=== PATIENT | male | born 1990 | race Caucasian/White ===

== ENCOUNTER 2025-04-15 22:42 | Inpatient (IN) | payer OTHER ==
[2025-04-15] MEDS ORDERED: NALOXONE 0.4 MG/ML 1 ML VIAL IV PRN (22:52)
--- NOTE | 2025-04-15 22:52 | ED ---
Recheck HPI - General Chief Complaint: Abdominal Pain Stated Complaint: Abd Pain Time Seen by Provider: 04/15/25 22:44 Source: patient, EMS, RN notes reviewed, old records reviewed Mode of arrival: EMS Limitations: no limitations - History of Present Illness Initial Comments: This is a 34-year-old male presenting with nausea vomiting and abdominal pain. Patient was seen at prior hospital transferred to our hospital for acute appendicitis MD Complaint: abnormal lab, needs IV antibiotics -: days(s) Returns Today for: needs IV antibiotics, persistent/worsening pain related to initial visit Symptoms Since Prior Visit: worsening pain Associated Symptoms: nausea, abdominal pain Treatments Prior to Arrival: Given Antibiotics on, Given Pain Meds on Review of Systems ROS Statement: Those systems with pertinent positive or pertinent negative responses have been documented in the HPI. ROS Other: All systems not noted in ROS Statement are negative. Past Medical History Past Medical History: GERD/Reflux History of Any Multi-Drug Resistant Organisms: None Reported Past Surgical History: No Surgical Hx Reported Past Psychological History: No Psychological Hx Reported Smoking Status: Never smoker Past Alcohol Use History: Occasional Past Drug Use History: Marijuana General Exam Limitations: no limitations General appearance: alert, in no apparent distress Head exam: Present: atraumatic, normocephalic, normal inspection Eye exam: Present: normal appearance, PERRL, EOMI. Absent: scleral icterus, conjunctival injection, periorbital swelling ENT exam: Present: normal exam, mucous membranes moist Neck exam: Present: normal inspection. Absent: tenderness, meningismus, lymphadenopathy Respiratory exam: Present: normal lung sounds bilaterally. Absent: respiratory distress, wheezes, rales, rhonchi, stridor Cardiovascular Exam: Present: regular rate, normal rhythm, normal heart sounds. Absent: systolic murmur, diastolic murmur, rubs, gallop, clicks GI/Abdominal exam: Present: soft, normal bowel sounds. Absent: distended, tenderness, guarding, rebound, rigid Extremities exam: Present: normal inspection, full ROM, normal capillary refill. Absent: tenderness, pedal edema, joint swelling, calf tenderness Back exam: Present: normal inspection Neurological exam: Present: alert, oriented X3, CN II-XII intact Psychiatric exam: Present: normal affect, normal mood Skin exam: Present: warm, dry, intact, normal color. Absent: rash Course Vital Signs 04/15/25 22:44 Temperature 98.6 F Pulse Rate 90 Respiratory 18 Rate Blood Pressure 146/98 O2 Sat by Pulse 99 Oximetry - Reevaluation(s) Reevaluation #1: 04/15/25 22:53 Sinus medical records reviewed Reevaluation #2: 04/15/25 22:54 Patient symptoms remain improved pain is controlled Reevaluation #3: 04/15/25 22:54 Patient informed of results and questions answered Reevaluation #4: Was pt. sent in by a medical professional or institution (PATTY Khan, MICROBIAL SPECIALIST, urgent care, hospital, or shelter...) When possible be specific @ -no Did you speak to anyone other than the patient for history (EMS, parent, family, police, friend...)? What history was obtained from this source @ -no Did you review nursing and triage notes (agree or disagree)? Why? @ -agree Are old charts reviewed (outside hosp., previous admission, EMS record, old EKG, old radiological studies, urgent care reports/EKG's, shelter records)? Report findings @ -yes Differential Diagnosis (chest pain, altered mental status, abdominal pain women, abdominal pain men, vaginal bleeding, weakness, fever, dyspnea, syncope, headache, dizziness, GI bleed, back pain, seizure, CVA, palpatations, mental health, musculoskeletal)? @ -prior EKG interpreted by me (3pts min.). @ -yes X-rays interpreted by me (1pt min.). @ -yes negative for acute disease CT interpreted by me (1pt min.). @ -no U/S interpreted by me (1pt. min.). @ -no What testing was considered but not performed or refused? (CT, X-rays, U/S, labs)? Why? @ -none What meds were considered but not given or refused? Why? @ -none Did you discuss the management of the patient with other professionals (professionals i.e. PATTY Khan, MICROBIAL SPECIALIST, lab, RT, psych nurse, social staff worker, freight car cleaner [employer], teacher, international first officer, casework specialist)? Give summary @ -no Was smoking cessation discussed for >3mins.? @ -no Was critical care preformed (if so, how long)? @ -no Were there social determinants of health that impacted care today? How? (Homelessness, low income, unemployed, alcoholism, drug addiction, transportation, low edu. Level, literacy, decrease access to med. care, [facility], rehab)? @ -none Was there de-escalation of care discussed even if they declined (Discuss DNR or withdrawal of care, Hospice)? DNR status @ -no What co-morbidities impacted this encounter? (DM, HTN, Smoking, COPD, CAD, Cancer, CVA, ARF, Chemo, Hep., AIDS, mental health diagnosis, sleep apnea, morbid obesity)? @ -none Was patient admitted / discharged? Hospital course, mention meds given and route, prescriptions, significant lab abnormalities, going to OR and other pertinent info. @ - Undiagnosed new problem with uncertain prognosis? @ -no Drug Therapy requiring intensive monitoring for toxicity (Heparin, Nitro, Insul in, Cardizem)? @ -no Were any procedures done? @ -no Diagnosis/symptom? @ - Acute, or Chronic, or Acute on Chronic? @ -Acute Uncomplicated (without systemic symptoms) or Complicated (systemic symptoms)? @ -Complicated Side effects of treatment? @ -no Exacerbation, Progression, or Severe Exacerbation? @ -exacerbation Poses a threat to life or bodily function? How? (Chest pain, [place], [place], pneumonia, PE, COPD, DKA, ARF, appy, cholecystitis, CVA, Diverticulitis, Homicidal, Suicidal, threat to staff... and all critical care pts) @ -yes Reevaluation #5: Differential Abdominal Pain Men: Appendicitis, cholecystitis, diverticulosis, ischemic bowel, pancreatitis, hepatitis, UTI, gastroenteritis, AAA, incarcerated hernia, bowel obstruction, constipation, inflammatory bowel, hepatitis, peptic ulcer disease, splenic infarction, perforated viscus, testicular torsion, this is not meant to be an all-inclusive list - Consultations Consultation #1: Spoke with Dr. Donaldson aware of this patient Medical Decision Making - Medical Decision Making 34 male accepted as transfer for acute appendicitis will be admitted for surgical evaluation and treatment Disposition Clinical Impression: Abdominal pain, Acute appendicitis Disposition: ADMITTED IP TO THIS [facility] Condition: Serious Is patient prescribed a controlled substance at d/c from ED?: No Referrals: Mal Ramirez MD [Primary Care Provider] - 1-2 days Time of Disposition: 23:00
[2025-04-15] MEDS: HYDROmorphone 1 MG/ML 1 ML SYRINGE IVP STA (23:01)
[2025-04-15] MEDS: AMPICILLIN-SULBACTAM 3 GM in SODIUM CHLORIDE 0.9% 100 ML IVPB STA (23:03)
[2025-04-15] MEDS: SODIUM CHLORIDE 0.9% 1,000 ML IV SCH (23:03)
[2025-04-15] MEDS: PANTOPRAZOLE 40 MG/10 ML VIAL IV SCH (23:06)
--- NOTE | 2025-04-16 00:31 | P.GSHP ---
History of Present Illness H&P Date: 04/16/25 This is a 34-year-old male presenting to the [facility] ER with nausea, vomiting, and abdominal pain. Patient was seen at outside hospital for the symptoms. A CT- AP was performed which showed acute appendicitis, Subsequently, the patient was transferred to [facility] for management and surgical intervention. Patient states pain is in the right lower quadrant. Currently, denies fevers and chills. Review of Systems ROS Statement: Those systems with pertinent positive or pertinent negative responses have been documented in the HPI. ROS Other: All systems not noted in ROS Statement are negative. Past Medical History Past Medical History: GERD/Reflux History of Any Multi-Drug Resistant Organisms: None Reported Past Surgical History: No Surgical Hx Reported Past Psychological History: No Psychological Hx Reported Smoking Status: Never smoker Past Alcohol Use History: Occasional Past Drug Use History: Marijuana General Exam Limitations: no limitations General appearance: alert, in no apparent distress Head exam: Present: atraumatic, normocephalic, normal inspection Eye exam: Present: normal appearance, PERRL, EOMI. Absent: scleral icterus, conjunctival injection, periorbital swelling ENT exam: Present: normal exam, mucous membranes moist Neck exam: Present: normal inspection. Absent: tenderness, meningismus, lymphadenopathy Respiratory exam: Present: normal lung sounds bilaterally. Absent: respiratory distress, wheezes, rales, rhonchi, stridor Cardiovascular Exam: Present: regular rate, normal rhythm, normal heart sounds. Absent: systolic murmur, diastolic murmur, rubs, gallop, clicks GI/Abdominal exam: Present: soft, normal bowel sounds. Absent: distended, tenderness, guarding, rebound, rigid Extremities exam: Present: normal inspection, full ROM, normal capillary refill. Absent: tenderness, pedal edema, joint swelling, calf tenderness Back exam: Present: normal inspection Neurological exam: Present: alert, oriented X3, CN II-XII intact Psychiatric exam: Present: normal affect, normal mood Skin exam: Present: warm, dry, intact, normal color. Absent: rash 34 year old male with Right Lower Quadrant Pain. CT-AP shows evidence for Acute Appendicitis. -Will plan for Laparoscopic Appendectomy today -NPO -IV fluids -Unasyn -Pain and Nausea Control -AM labs -Medicine consult for medical management [facility] [phone] Past Medical History Past Medical History: GERD/Reflux History of Any Multi-Drug Resistant Organisms: None Reported Past Surgical History: No Surgical Hx Reported Past Anesthesia/Blood Transfusion Reactions: No Reported Reaction Past Psychological History: No Psychological Hx Reported Smoking Status: Never smoker Past Alcohol Use History: Occasional Past Drug Use History: Marijuana Medications and Allergies Allergies Allergy/AdvReac Type Severity Reaction Status Date / Time No Known Allergies Allergy Verified 04/15/25 22:58 Surgical - Exam Vital Signs Temp Pulse Resp BP Pulse Ox 98.6 F 90 18 146/98 99 04/15/25 22:44 04/15/25 22:44 04/15/25 22:44 04/15/25 22:44 04/15/25 22:44
[2025-04-16] MEDS: MORPHINE SULFATE 4 MG/ML SYRINGE IV PRN (01:23)
[2025-04-16 04:46] LABS: Basophils # (A) 0.03 10*3/uL (0.00-0.10); Basophils % (A) 0.3 %; Eosinophils # (A) 0.11 10*3/uL (0.04-0.35); HCT 38.7 % (39.6-50.0); HGB 13.5 g/dL (13.0-17.0); Lymphocytes # (A) 1.66 10*3/uL (0.90-5.00); Lymphocytes % (A) 14.4 %; MCH 34.4 pg (27.0-32.0); MCHC 34.9 g/dL (32.0-37.0); MCV 98.5 fL (80.0-97.0); Mean Platelet Volume 9.3 fL (9.5-12.2); Monocytes % (A) 6.9 %; Neutrophils # (A) 8.87 10*3/uL (1.80-7.70); Neutrophils % (A) 76.8 %; Platelet Count 213 10*3/uL (140-440); RBC 3.93 10*6/uL (4.40-5.60); RDW 11.9 % (11.5-14.5); WBC 11.54 10*3/uL (4.50-10.00)
[2025-04-16 04:57] LABS: ALT 34 U/L (4-49); AST 20 U/L (17-59); African American GFR (CKD) >90 (>60 ml/min/1.73 sqM); Albumin 4.1 g/dL (3.5-5.0); Alkaline Phosphatase 73 U/L (38-126); Anion Gap 12 mmol/L; Blood Urea Nitrogen 12 mg/dL (9-20); Calcium 9.4 mg/dL (8.4-10.2); Carbon Dioxide 26 mmol/L (22-30); Chloride 99 mmol/L (98-107); Glucose 93 mg/dL (74-99); Non-African American GFR(CKD) >90 (>60 ml/min/1.73 sqM); Phosphorus 5.4 mg/dL (2.5-4.5); Sodium 137 mmol/L (137-145); Total Protein 6.4 g/dL (6.3-8.2)
[2025-04-16] MEDS: AMPICILLIN-SULBACTAM 3 GM in SODIUM CHLORIDE 0.9% 100 ML IVPB SCH (05:34)
[2025-04-16] MEDS ORDERED: ACETAMINOPHEN TAB 325 MG TAB PO PRN (09:12)
[2025-04-16] MEDS ORDERED: HYDROcodone/APAP 5-325MG 1 EACH TAB PO PRN (09:12)
--- NOTE | 2025-04-16 10:51 | P.CONS ---
History of Present Illness - Reason for Consult Consult date: 04/16/25 Medical Management Requesting physician: Adi Hood - Chief Complaint Abdominal pain, nausea, and vomiting - History of Present Illness History of Presenting Illness: Patient is a very pleasant 34-year-old male with a past medical history of GERD and marijuana use. He is currently admitted to our facility after being transferred from [facility] where he initially presented with abdominal pain, nausea, and vomiting and underwent workup with CT findings concerning for acute appendicitis. Patient was transferred to our facility and admitted under general surgery team. We were consulted for medical management throughout hospitalization. Labs completed and reviewed. CBC showing leukocytosis with WBC count of 11.54 low hematocrit of 38.7, elevated MCV of 98.5 and elevated MCH of 34.4. BMP was unremarkable. Calcium 9.4. Blood glucose 93. Magnesium 2.0. Liver profile unremarkable. Vital signs reviewed. Blood pressure 124/82, heart rate 88, re spiratory rate 16, temp 97.8 F, and SpO2 of 97% on room air. On examination, patient currently resting in bed with family at bedside. He reports continued moderate pain in right lower quadrant and mild pain in left lower quadrant. He denies any further episodes of nausea or vomiting since receiving antiemetic medication. Patient denies having any fevers, chills, diaphoresis, chest pain, palpitations, shortness of breath, or any other complaints at this time. Patient reports normal bowel and urinary function. Review of systems: Pertinent positives and negatives as discussed in HPI, a complete review of systems was performed and all other systems are negative. Physical exam: Vital signs reviewed and stable. General: Nontoxic, no distress and appears stated age. Derm: Skin warm and dry, normal coloration for ethnicity. Head: Atraumatic, normocephalic and symmetric. Eyes: EOM's intact, no lid lag, and anicteric sclera Mouth: no lip lesions, mucus membranes moist Cardiovascular: regular rate and rhythm with normal S1S2, no murmur, positive posterior tibial pulses bilaterally, and cap refill < 2 seconds. Lungs: Respirations even, regular, and unlabored on room air. Lungs CTA bilaterally, no rhonchi, no rales, no wheezing, and no accessory muscle usage. Abdominal: soft, tenderness upon palpation right lower quadrant and left lower quadrant, no guarding, no appreciable organomegaly Ext: ROM intact. No gross muscle atrophy, no edema, no contractures Neuro: Speech clear, face symmetrical and CN II-XII grossly intact with no noted focal neuro deficits Psych: Alert and oriented to person, place, time, and situation. Appropriate and pleasant affect. Assessment and Plan of Care: Acute appendicitis Patient admitted under the general surgery team with plans to take patient for laparoscopic appendectomy later today. Continue IV antibiotics with Unasyn 3 g every 6 hours. Zofran 4 mg IVP every 8 hours as needed for nausea or vomiting. Symptomatic care and pain management with Tylenol 650 mg every 6 hours as needed for mild pain and/for fever, [place] 5-325 mg tablets every 4 hours as needed for moderate pain, and morphine 4 mg IVP every 4 hours as needed for severe pain. N.p.o. pending completion of surgical procedure and diet to be advanced by primary admitting team. GI prophylaxis with Protonix 40 mg daily. Continue IV fluid hydration with 0.9% normal saline at 130 cc/h pending advancement of diet. May discontinue IV fluids once patient tolerating oral intake. GERD Continue Protonix 40 mg daily. Data and imaging reviewed: As stated above in HPI Thank you for allowing us to participate in the care of this pleasant patient. Do not hesitate to contact us with questions. Someone can be reached from the [facility] hospitalist group all hours of the day at [phone] or via Eve. Patient was seen independently by Nurse Practitioner. This document was prepared using Curi[employer] dictation software. Please allow for errors in sem manager while rare they do occur. Renaldo Love NP rendered care for this patient independently, reviewed the findings and plan as documented in the note above and agree with plan. I did not physically speak with or examine the patient on this date. Past Medical History Past Medical History: GERD/Reflux History of Any Multi-Drug Resistant Organisms: None Reported Past Surgical History: No Surgical Hx Reported Past Anesthesia/Blood Transfusion Reactions: No Reported Reaction Past Psychological History: No Psychological Hx Reported Smoking Status: Never smoker Past Alcohol Use History: Occasional Past Drug Use History: Marijuana Medications and Allergies Allergies Allergy/AdvReac Type Severity Reaction Status Date / Time No Known Allergies Allergy Verified 04/15/25 22:58 Physical Exam Vitals: Vital Signs Temp Pulse Pulse Resp BP BP Pulse Ox 04/16/25 08:00 97.8 F 88 16 124/82 97 04/16/25 01:46 97.3 F L 79 18 129/81 99 04/15/25 22:44 98.6 F 90 18 146/98 99 Intake and Output 04/15/25 04/16/25 04/16/25 22:59 06:59 14:59 Other: Weight 140.614 kg 140.614 kg Results CBC & Chem 7: 04/16/25 03:48 04/16/25 03:48 Labs: Abnormal Lab Results - Last 24 Hours (Table) 04/16/25 04/16/25 Range/Units 03:48 03:48 WBC 11.54 H (4.50-10.00) 10*3/uL RBC 3.93 L (4.40-5.60) 10*6/uL Hct 38.7 L (39.6-50.0) % MCV 98.5 H (80.0-97.0) fL MCH 34.4 H (27.0-32.0) pg MPV 9.3 L (9.5-12.2) fL Immature Gran # 0.07 H (0.00-0.04) 10*3/uL Neutrophils # 8.87 H (1.80-7.70) 10*3/uL Phosphorus 5.4 H (2.5-4.5) mg/dL
[2025-04-16 14:10] LABS: INR 0.93 sec (0.93-1.11); Prothrombin Time 10.7 sec (9.9-11.9)
[2025-04-16] MEDS: IV FLUID CONTINUATION 1,000 ML IV ONE (16:49)
[2025-04-16] MEDS: DEXAMETHASONE SOD PHOSPHATE 10 MG/ML 1 ML VIAL IVP STA (17:00)
[2025-04-16] MEDS: FAMOTIDINE 20 MG/2 ML VIAL IV STA (17:07)
[2025-04-16] MEDS: ONDANSETRON 4 MG/2 ML VIAL IVP PRN (17:07)
[2025-04-16] MEDS ORDERED: HYDROmorphone (PF) 1 MG/ML ONE (17:13)
[2025-04-16] MEDS ORDERED: ROCURONIUM 10 MG/ML (5 ML VIAL) IV ONE (17:13)
[2025-04-16] MEDS ORDERED: PROPOFOL 10 MG/ML 20 ML VIAL IV ONE (17:13)
[2025-04-16] MEDS ORDERED: MIDAZOLAM 2 MG/2 ML VIAL ONE (17:13)
[2025-04-16] MEDS ORDERED: fentaNYL (PF) 50 MCG/ML 2 ML AMP ONE (17:13)
[2025-04-16] MEDS ORDERED: GLYCOPYRROLATE 0.2 MG/ML 2 ML VIAL ONE (17:13)
[2025-04-16] MEDS ORDERED: KETOROLAC 15 MG/ML 1 ML VIAL ONE (17:13)
[2025-04-16] MEDS ORDERED: NEOSTIGMINE 1 MG/ML 10 ML VIAL ONE (17:13)
[2025-04-16] MEDS ORDERED: LIDOCAINE 1% INJ 10MG/ML (20 ML MDV) ONE (17:13)
[2025-04-16] MEDS ORDERED: SUCCINYLCHOLINE CHLORIDE 200 MG/10 ML VIAL IV ONE (17:13)
[2025-04-16] MEDS: BUPIVACAINE (PF) 0.25% 30 ML VIAL SQ ONE (17:39)
[2025-04-16] MEDS: LACTATED RINGERS 1,000 ML IV ONE (17:56)
[2025-04-16] MEDS ORDERED: HYDROmorphone 1 MG/ML 1 ML SYRINGE IVP PRN (18:04)
--- NOTE | 2025-04-16 18:08 | P.OP ---
Date of Procedure: 04/16/25 Preoperative Diagnosis: Acute Appendicitis Postoperative Diagnosis: Acute Perforated Appendicitis Procedure(s) Performed: Robotic Appendectomy Anesthesia: AMADOR Surgeon: Adi Hood Estimated Blood Loss (ml): 25 Pathology: other (Appendix) Condition: stable Disposition: PACU Description of Procedure: The patient was taken to the operating suite and placed in supine position. Anesthesia was given and endotracheal intubation was performed. A julian catheter was placed. The abdomen was prepped and draped in usual sterile fashion. A timeout was performed. An #11 blade was used to make an incision at Tavares's point and a 5 mm optiview was used to gain access to the peritoneal cavity and the abdomen was insufflated. The patient was positioned. Two additional working 8 mm robotic ports were placed on the right side of the abdomen and a 12 mm robotic port was placed in the left lower quadrant. The 5 mm optiview used to access the abdomen was exchanged for an 8 mm port. The robot was then docked and instruments inserted. The next portions of the procedure were performed from the robotic console. The right lower quadrant was inspected and the appendix was visualized. It did appear edematous and inflamed. The distal of the appendix was grasped with a fenestrated biopolar cautery and the mesoappendix was taken down with a vessel sealer. There was no bleeding noted. The distal end of the appendix was visualized entering the cecum. A robotic Endo MELISSA 60 mm white staple load was then used to transect the appendix at the base of the cecum.. After the appendix was divided at the base of the cecum, there were no remnants of the appendix. The abdomen was thoroughly irrigated. The appendix was placed in an endocatch bag and removed through the 12 mm port in the left lower quadrant. The fascia of the 12 mm port site was closed with an #0 Vicryl Suture using a Readmill Device. The robot was undocked and the rest of the ports were removed. The incisions were inspected and there was no active bleeding. Incisions were closed with a #4-0 Monocryl Suture. Skin glue was applied to the incisions. This concluded the surgery. Anesthesia was reversed and the patient was extubated. The patient tolerated the procedure well and was sent to the PACU in stable condition.
[2025-04-16] MEDS: HYDROmorphone 0.5 MG/0.5 ML SYRINGE IVP PRN (18:16)
[2025-04-16] MEDS: SODIUM CHLORIDE 0.9% 1,000 ML IV SCH (20:02)
[2025-04-16] MEDS: HYDROcodone/APAP 10-325MG 1 EACH TAB PO PRN (21:44)
[2025-04-17 07:32] VITALS: RESP 19
[2025-04-17 10:26] LABS: HCT 39.6 % (39.6-50.0); HGB 13.3 g/dL (13.0-17.0); MCH 34.1 pg (27.0-32.0); MCHC 33.6 g/dL (32.0-37.0); MCV 101.5 FL (80.0-97.0); Mean Platelet Volume 9.7 FL (9.5-12.2); NRBC Per 100 WBC 0 X 10*3/uL (0.00-0.01); Platelet Count 226 X 10*3/uL (140-440); RDW 11.9 % (11.5-14.5); WBC 9.57 X 10*3/uL (4.50-10.00)
[2025-04-17 10:28] LABS: ALT 32 U/L (10-49); AST 16 U/L (14-35); Albumin 4.2 g/dL (3.8-4.9); Albumin/Globulin Ratio 1.83 Ratio (1.60-3.17); Alkaline Phosphatase 77 U/L (41-126); Blood Urea Nitrogen 10.6 mg/dL (9.0-27.0); Calcium 9.2 mg/dL (8.7-10.3); Carbon Dioxide 24.2 mmol/L (21.6-31.8); Chloride 102 mmol/L (96-109); Globulin 2.3 g/dL (1.6-3.3); Glucose 132 mg/dL (70-110); Magnesium 2.2 mg/dL (1.5-2.4); Potassium 4.5 mmol/L (3.5-5.5); Sodium 139 mmol/L (135-145); Total Bilirubin 0.9 mg/dL (0.3-1.2); Total Protein 6.5 g/dL (6.2-8.2)
--- NOTE | 2025-04-17 12:53 | P.DS ---
Providers Date of admission: 04/15/25 22:52 Expected date of discharge: 04/17/25 Attending physician: Adi Hood DO Consults: 04/15/25 23:41 Consult Physician Routine Consulting Provider: Jason Whittington Consult Reason/Comments: medManage Do you want consulting provider notified?: Yes Primary care physician: Mal Ramirez Hospital Course: Discharge diagnosis 1. Acute perforated appendicitis Hospital course This is a 34-year-old male who presented to the ER with nausea, vomiting and diarrhea. CT scan had showed evidence of acute appendicitis. Patient is status post robotic appendectomy for an acute ruptured appendicitis. Patient tolerated surgery well. Pain is controlled. He is tolerating diet. He is having flatus. He has been up and ambulating. He is afebrile. His white count has normalized. He is discharged with oral antibiotics. He is stable for discharge. Please refer to chart for further details. Physician Radius Corner Machine Operator note has been reviewed by physician. Signing provider agrees with the documented findings, assessment, and plan of care. Attestation Patient seen and examined at bedside. Postoperative from robotic appendectomy. He has been doing well since surgery. Leukocytosis downward trending. Afebrile. Requesting discharge. Tolerating diet. Plan for discharge home with oral antibiotics. Wound care and activity instructions provided. Follow-up as outpatient. Bart Rajan DO Patient Condition at Discharge: Stable Plan - Discharge Summary Discharge Rx Participant: Yes New Discharge Prescriptions: New Amoxic-Pot Clav 500-125 mg [Augmentin 500-125 mg] 1 tab PO Q12HR #10 tab HYDROcodone/APAP 5-325MG [Friendship 5-325] 1 tab PO Q6HR PRN 3 Days #12 tab PRN Reason: Pain Continue Omeprazole Magnesium [PriLOSEC OTC] 20 mg PO DAILY Discharge Medication List Omeprazole Magnesium [PriLOSEC OTC] 20 mg PO DAILY 04/16/25 [History] Amoxic-Pot Clav 500-125 mg [Augmentin 500-125 mg] 1 tab PO Q12HR #10 tab 04/17/25 [Rx] HYDROcodone/APAP 5-325MG [Friendship 5-325] 1 tab PO Q6HR PRN 3 Days #12 tab 04/17/25 [Rx] Follow up Appointment(s)/Referral(s): Jacob Franco NPC [REFERRING] - 04/18/25 8:30 am Adi Hood DO [Medical Doctor] - 04/25/25 10:30 am Patient Instructions/Handouts: Laparoscopic Appendectomy (DC) Activity/Diet/Wound Care/Special Instructions: No driving while taking Friendship No lifting over 10 pounds You may shower. No soaking or tub baths for 2 weeks Very light activity until you are reevaluated at your follow up appointment with your surgeon Discharge Disposition: HOME SELF-CARE
--- NOTE | 2025-04-17 14:00 | P.PN ---
Subjective Progress Note Date: 04/17/25 Hospital Course: Patient is a very pleasant 34-year-old male with a past medical history of GERD and marijuana use. He is currently admitted to our facility after being transferred from [facility] where he initially presented with abdominal pain, nausea, and vomiting and underwent workup with CT findings concerning for acute appendicitis. Patient was transferred to our facility and admitted under general surgery team. CBC showing leukocytosis with WBC count of 11.54 low hematocrit of 38.7, elevated MCV of 98.5 and elevated MCH of 34.4. BMP was unremarkable. Calcium 9.4. Blood glucose 93. Magnesium 2.0. Liver profile unremarkable. Vital signs reviewed. Blood pressure 124/82, heart rate 88, respiratory rate 16, temp 97.8 F, and SpO2 of 97% on room air. We were consulted for medical management throughout hospitalization. Physical exam: Patient seen and fully evaluated at bedside this morning. He is postoperative day 1 and was resting comfortably in bed and currently denies having any needs or complaints. He reports postoperative pain is mild but controlled with current medication regimen. Patient states he has not needed any IV pain medications. He denies nausea and vomiting and tolerating oral intake with regular diet. Patient reports passing flatus but denies bowel movement as of yet. Vital signs reviewed and stable. General: Nontoxic, no distress and appears stated age. Derm: Skin warm and dry, normal coloration for ethnicity. Head: Atraumatic, normocephalic and symmetric. Eyes: EOM's intact, no lid lag, and anicteric sclera Mouth: no lip lesions, mucus membranes moist Cardiovascular: regular rate and rhythm with normal S1S2, no murmur, positive p osterior tibial pulses bilaterally, and cap refill < 2 seconds. Lungs: Respirations even, regular, and unlabored on room air. Lungs CTA bilaterally, no rhonchi, no rales, no wheezing, and no accessory muscle usage. Abdominal: soft, BSx4. mild postoperative tenderness around laparoscopic incision sites, no guarding, no appreciable organomegaly Ext: ROM intact. No gross muscle atrophy, no edema, no contractures Neuro: Speech clear, face symmetrical and CN II-XII grossly intact with no noted focal neuro deficits Psych: Alert and oriented to person, place, time, and situation. Appropriate and pleasant affect. Assessment and Plan of Care: Acute appendicitis status post laparoscopic appendectomy Management per primary admitting general surgery team Including DVT prophylaxis, pain management, and postoperative instructions. Continue IV antibiotics with Unasyn 3 g every 6 hours. Zofran 4 mg IVP every 8 hours as needed for nausea or vomiting. Symptomatic care and pain management with Tylenol 650 mg every 6 hours as needed for mild pain and/for fever, [place] 5-325 mg tablets every 4 hours as needed for moderate pain, and morphine 4 mg IVP every 4 hours as needed for severe pain. Patient tolerating regular diet. GI prophylaxis with Protonix 40 mg daily. GERD Continue Protonix 40 mg daily. Data and imaging reviewed: Postoperative labs reviewed. CBC showing resolution of leukocytosis with WBC count of 9.57 and stable postoperative hemoglobin of 13.3 with continued macrocytosis with MCV 101.5 and MCH of 34.1.. BMP showing elevated anion gap of 12.80 otherwise normal findings. Blood glucose 132. Magnesium 2.2. Liver profile unremarkable Vital signs reviewed. Blood pressure 132/74, heart rate 87, respiratory rate 19, temp 97.9 F, and SpO2 of 96% on room air Patient is medically optimized and cleared from medical perspective for dischar ge once cleared by primary admitting general surgery team. Thank you for allowing us to participate in the care of this pleasant patient. Do not hesitate to contact us with questions. Someone can be reached from the [facility] hospitalist group all hours of the day at [phone] or via [employer]. Patient was seen independently by Nurse Practitioner. This document was prepared using ezeep dictation software. 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 Renaldo Love NP rendered care for this patient independently, reviewed the findings and plan as documented in the note above and agree with plan. I did not physically speak with or examine the patient on this date. Objective - Vital Signs Vital signs: Vital Signs Temp 97.9 F 04/17/25 07:02 Pulse 87 04/17/25 07:02 Resp 19 04/17/25 07:02 BP 132/74 04/17/25 07:02 Pulse Ox 96 04/17/25 07:02 FiO2 Intake & Output 04/16/25 04/17/25 04/17/25 18:59 06:59 18:59 Intake Total 1100 1300 Output Total 275 Balance 825 1300 Intake: IV 1100 Intake, IV Titration 1300 Amount Ampicillin-Sulbactam 3 gm 100 In Sodium Chloride 0.9% 100 ml @ 200 mls/hr IVPB ONCE STA Rx#:[id number] Sodium Chloride 0.9% 1, 1200 000 ml @ 100 mls/hr IV . Q10H [facility] Rx#:[id number] Oral 0 Output: Urine 270 Estimated Blood Loss 5 Other: Voiding Method Toilet Toilet # Voids 1 - Labs CBC & Chem 7: 04/17/25 02:40 04/17/25 02:40
[2025-04-17 14:05] VITALS: BP 147/79; PULSE 86; TEMP 98.5
== END 2025-04-17 14:10 | disposition home or self-care (01) | DRG 233 ==
LOC: EC 22:42 → OBSVTOIN 22:52 → 4SSUR 22:52
PROVIDERS: ADMIT Surgery; ATTEND Surgery
PROC: 0DTJ4ZZ Resection of Appendix, Percutaneous Endoscopic Approach (ICD-10-PCS; principal; 2025-04-16 14:00)
PROC: 8E0W4CZ Robotic Assisted Procedure of Trunk Region, Percutaneous Endoscopic Approach (ICD-10-PCS; principal; 2025-04-16 14:00)
DX: K35.32 Acute appendicitis with perforation, localized peritonitis, and gangrene, without abscess (principal); K21.9 Gastro-esophageal reflux disease without esophagitis
CPT/HCPCS: 80053; 83735; 84100; 85025; 85027; 85610; 88304; 96365; 96375; 99285